=== PATIENT | female | born 1995 | race Caucasian/White ===

== ENCOUNTER 2017-01-28 11:15 | Emergency (ER) | payer OTHER ==
[~2017-01-28] VITALS: Ht 167.6 cm; Wt 84.8 kg
[~2017-01-28 11:15] MED LIST: CEFD300C3 PO
[2017-01-28] MEDS ORDERED: NS IV 1000 ML 1,000 ML IV ONE (11:37)
[2017-01-28] MEDS ORDERED: ONDANSETRON 4 MG/2 ML (SDV) Z0FRAN IVP ONE (11:45)
--- NOTE | 2017-01-28 11:53 | ED GI ---
General Chief Complaint: Abdominal/GI Problems Stated Complaint: VOMITING/DIARRHEA Nursing Triage Note: pt reports vomiting since midnight this am. pt also reports intermittent generalized abdominal pain. Sepsis Screen: No Definite Risk History of Present Illness Time Seen By Provider: 12:00 Initial Comments Patient presents for vomiting and diarrhea, symptoms began approximately 1230 a.m. She has had multiple episodes, diarrhea approximately 2 hours and dry heaves approximately 30 minutes prior to arrival. She also notes a moderate frontal headache, 4/.10. She ate dinner last night, nothing new or different for her, and had no symptoms when she went to bed. She is taking no medication for treatment of the n/v/d. No recent travel. She has not tried to eat or drink anything since the symptoms started. Se had gastric sleeve surgery approximately 4 years ago. Timing/Duration: 12 Hours Severity/Quality: Mild Location: Generalized Abdomen Radiation: No Radiation Activities at Onset: Sleeping Modifying Factors: Improves With Lying down, Improves With Resting Associated Symptoms: Headache Allergies and Home Medications Allergies Coded Allergies: Penicillins (Verified Allergy, Intermediate, RASH, 02/01/13) Home Medications Cefdinir 300 Mg Capsule 7Days 1 EACH PO BID Prescribed by: LUKE KING on 02/01/13 0223 Ciprofloxacin HCl 500 Mg Tablet #6 500 MG PO BID Prescribed by: ETELVINA ROYAL on 01/28/17 1510 Ondansetron 8 Mg Tab.rapdis #4 8 MG PO Q8H Prescribed by: ETELVINA ROYAL on 01/28/17 1510 Review of Systems Constitutional: no symptoms reported see HPI EENTM: No Symptoms Reported See HPI Respiratory: No Symptoms Reported See HPI Cardiovascular: No Symptoms Reported See HPI Gastrointestinal: See HPI Abdominal Pain (generalized) Diarrhea Nausea Vomiting Genitourinary: No Symptoms Reported See HPI Musculoskeletal: no symptoms reported see HPI Skin: no symptoms reported see HPI Psychiatric/Neurological: See HPI Headache Endocrine: No Symptoms Reported See HPI Hematologic/Lymphatic: No Symptoms Reported See HPI All Other Systems Reviewed Negative Unless Noted: Yes Past [id number]-Mpulzo Hx Patient Social History Alcohol Use: Rarely Uses Recreational Drug Use: No Smoking Status: Never a Smoker Recent Foreign Travel: No Contact w/Someone Who Travel: No Recent Infectious Disease Expo: No Recent Hopitalizations: No Surgeries HX Surgeries: Yes (NONINVASIVE BACK SURGEY, gastric sleeve) Respiratory Hx Respiratory Disorders: No Cardiovascular Hx Cardiac Disorders: No Neurological Hx Neurological Disorders: No Reproductive System Hx Reproductive Disorders: No Sexually Transmitted Disease: No HIV/AIDS: No Genitourinary Hx Genitourinary Disorders: No Gastrointestinal Hx Gastrointestinal Disorders: No Musculoskeletal Hx Musculoskeletal Disorders: No Endocrine Hx Endocrine Disorders: No HEENT HX ENT Disorders: No Cancer Hx Cancer: No Psychosocial Hx Psychiatric Problems: No Integumentary HX Skin/Integumentary Disorder: No Blood Transfusions Hx Blood Disorders: No Adverse Reaction to a Blood Tr: No Reviewed Nursing Assessment Reviewed/Agree w Nursing PMH: Yes Physical Exam Vital Signs VS - Last 72 Hours, by Label 01/28/17 01/28/17 11:41 15:22 Temp 98.3 Pulse 103 87 Resp 16 18 B/P 125/81 Pulse Ox 97 99 Capillary Refill : Less Than 3 Seconds General Appearance: WD/WN no apparent distress HEENT: PERRL/EOMI normal ENT inspection TMs normal pharynx normal other (oral mucosa pink and moist) Neck: non-tender full range of motion supple normal inspectionNo lymphadenopathy (R), No lymphadenopathy (L) Respiratory: chest non-tender lungs clear normal breath sounds Cardiovascular: normal peripheral pulses regular rate, rhythm no edema no JVD no murmur Gastrointestinal: normal bowel sounds non tender soft no organomegaly no pulsatile massNo distended, No guarding, No rebound, No tenderness, No hepatomegaly, No spleenomegaly, other (negative Stark) Extremities: normal range of motion non-tender normal inspection no pedal edema no calf tenderness normal capillary refill Back: normal inspection no CVA tenderness no vertebral tenderness Neurologic/Psychiatric: no motor/sensory deficits alert normal mood/affect oriented x 3 Skin: normal color warm/dryNo jaundice, No pallor Lymphatic: no adenopathy Progress/Results/Core Measures Results/Orders Lab Results Laboratory Tests Test 01/28/17 11:33 01/28/17 11:44 Range/Units Urine Amorphous Sediment FEW MARIS URATES H /LPF Urine Bacteria MODERATE H /HPF Urine Bilirubin 1+ H NEGATIVE Urine Casts NONE /LPF Urine Clarity SLIGHTLY CLOUDY Urine Color YELLOW Urine Crystals PRESENT H /LPF Urine Culture Indicated YES Urine Glucose (UA) NEGATIVE NEGATIVE Urine Ketones 3+ H NEGATIVE Urine Leukocyte Esterase 1+ H NEGATIVE Urine Mucus MODERATE H /LPF Urine Nitrite NEGATIVE NEGATIVE Urine Protein 2+ H NEGATIVE Urine RBC NONE /HPF Urine RBC (Auto) NEGATIVE NEGATIVE Urine Specific [place] 1.030 H 1.016-1.022 Urine Squamous Epithelial Cells 5-10 /HPF Urine Urobilinogen NORMAL NORMAL MG/DL Urine WBC 5-10 H /HPF Urine pH 5 5-9 Alanine Aminotransferase (ALT/SGPT) 10 0-55 U/L Albumin 4.4 3.2-4.5 G/DL Alkaline Phosphatase 55 40-136 U/L Anion Gap 10 5-14 MMOL/L Aspartate Amino Transf (AST/SGOT) 17 5-34 U/L BUN/Creatinine Ratio 21 Band Neutrophils 14 % Basophils # (Auto) 0.0 0.0-0.1 10^3/uL Basophils % (Manual) 0 % Basophils (%) (Auto) 0 0-10 % Blood Morphology Comment NORMAL Blood Urea Nitrogen 16 7-18 MG/DL Calcium Level 9.0 8.5-10.1 MG/DL Carbon Dioxide Level 24 21-32 MMOL/L Chloride Level 106 98-107 MMOL/L Creatinine 0.76 0.60-1.30 MG/DL Eosinophils # (Auto) 0.0 0.0-0.3 10^3/uL Eosinophils % (Manual) 0 % Eosinophils (%) (Auto) 0 0-10 % Estimat Glomerular Filtration Rate > 60 Glucose Level 103 70-105 MG/DL Hematocrit 39 35-52 % Hemoglobin 12.2 11.5-16.0 G/DL Lymphocytes # (Auto) 0.3 L 1.0-4.0 X 10^3 Lymphocytes % (Manual) 2 % Lymphocytes (%) (Auto) 4 L 12-44 % Mean Corpuscular Hemoglobin 28 25-34 PG Mean Corpuscular Hemoglobin Concent 32 32-36 G/DL Mean Corpuscular Volume 87 80-99 FL Mean Platelet Volume 10.3 7.4-10.4 FL Monocytes # (Auto) 0.3 0.0-1.0 X 10^3 Monocytes % (Manual) 2 % Monocytes (%) (Auto) 5 0-12 % Neutrophils # (Auto) 6.8 1.8-7.8 X 10^3 Neutrophils % (Manual) 82 % Neutrophils (%) (Auto) 92 H 42-75 % Platelet Count 165 130-400 10^3/uL Potassium Level 4.0 3.6-5.0 MMOL/L Red Blood Count 4.43 4.35-5.85 10^6/uL Red Cell Distribution Width 14.7 H 10.0-14.5 % Sodium Level 140 135-145 MMOL/L Total Bilirubin 1.2 H 0.1-1.0 MG/DL Total Protein 6.9 6.4-8.2 G/DL White Blood Count 7.4 4.3-11.0 10^3/uL My Orders Orders-GENNYETELVINA Ondansetron Injection (Zofran Injectio (01/28/17 11:45) Saline Lock/Iv-Start (01/28/17 11:37) Ns Iv 1000 Ml (Sodium Chloride 0.9%) (01/28/17 11:37) Urine Bedside (01/28/17 11:53) Ketorolac Injection (Toradol Injection) (01/28/17 12:11) Diphenhydramine Injection (Benadryl Inje (01/28/17 12:11) Promethazine Injection (Phenergan Injec (01/28/17 14:00) Medications Given in ED Current Medications Medications Dose Ordered Sig/Alison Route Start Time Stop Time Status Last Admin Dose Admin Ondansetron HCl 4 mg 4 mg ONCE ONCE IVP 01/28/17 11:45 01/28/17 11:46 DC 01/28/17 11:51 4 MG Promethazine HCl 25 mg ONCE ONCE IVP 01/28/17 14:00 01/28/17 14:01 DC 01/28/17 14:12 25 MG Sodium Chloride 1,000 ml @ 0 mls/hr Q0M ONCE IV 01/28/17 11:37 01/28/17 11:38 DC 01/28/17 11:51 1,000 MLS/HR Vital Signs/I&O Vital Sign - Last 12Hours 01/28/17 01/28/17 11:41 15:22 Temp 98.3 Pulse 103 87 Resp 16 18 B/P 125/81 Pulse Ox 97 99 Blood Pressure Mean: 96 Progress Note : Time: 12:00 Progress Note Initial evaluation completed, normal saline 1 L IV started. Zofran 8 mg IV. Patient complaining of mild frontal headache, will give Toradol 30 mg IV and Benadryl 25 mg IV. Labs have been sent will reevaluate when those are completed. 1220 UA pH 5, specific gravity 1.03, 2+ protein negative glucose, 3+ ketones, negative nitrites, 1+ bilirubin, 1+ leukocyte Estrace, negative RBCs, WBCs 5-10 , urine crystals present, urine bacteria moderate, culture indicated. WBC 7.4 hemoglobin 12.2, hematocrit 39, urine hCG negative. 1330 taking small sips of Sprite. IV fluids have infuse. She reports feeling slightly improved. 1355 after taking more Sprite she reports increased nausea again no vomiting or diarrhea. Will give Phenergan 25 mg IV. 1430 reports improvement in her nausea taking ice chips with no nausea. 1450 patient reports she is feeling much better, has taken Sprite and ice chips with no nausea vomiting or diarrhea. She has voided one time since admission. She feels she can manage at home. Abdominal exam she has trace tenderness in the epigastric region, now sounds positive 4 quadrants negative rebound negative Stark sign. No distention. She understands to return to the emergency department if symptoms return. I would like her to maintain a clear liquid diet for the next 4 hours then she can progress to a bland diet as tolerated, she verbalized understanding of this. Departure Impression Impression: Primary Impression: Nausea and vomiting Qualified Code: G43.A1 - Cyclical vomiting, intractable Additional Impression: Urinary tract infection Qualified Code: N30.00 - Acute cystitis without hematuria Disposition: HOME, SELF-CARE Condition: Improved Departure-Patient Inst. Referrals: [facility] (PCP) Primary Care Physician Patient Instructions: Dehydration, Adult (DC), Nausea and Vomiting, Adult (DC) , Urinary Tract Infection, Adult (DC) Add. Discharge Instructions: All discharge instructions reviewed with patient and/or family. Voiced understanding. Clear liquid diet for 4 hours then may progress to a bland diet. Start Cipro this evening for the urinary tract infection. Follow-up at [facility] tomorrow if symptoms return. Return to emergency Department if symptoms progress overnight or worsen significantly through the weekend. Scripts Ciprofloxacin HCl (Cipro)500 Mg [id number] Mg PO BID #6 TAB Ref 0 Prov:ETEVLINA ROYAL 01/28/17 Ondansetron (Zofran Odt)8 Mg Tab.rapdis8 Mg PO Q8H Nausea #4 TAB Ref 0 Prov:ETELVINA ROYAL 01/28/17 Work/School Note: School/Childcare Release Date Seen in the Emergency Department: Jan 28, 2017 Return to School: Jan 29, 2017 Restrictions: No Restrictions Copy Copies To 1: TAYLOR HERNANDEZ MD, AMY ARNP Jan 28, 2017 11:53
[2017-01-28 12:06] LABS: BASOPHILS % (AUTO) 0 % (0-10); EOSINOPHILS % (AUTO) 0 % (0-10); LYMPHOCYTES # (AUTO) 0.3 X 10^3 (1.0-4.0); LYMPHOCYTES % (AUTO) 4 % (12-44); MEAN CORPUSCULAR HEMOGLOBIN 28 PG (25-34); MEAN CORPUSCULAR HGB CONC 32 G/DL (32-36); MEAN CORPUSCULAR VOLUME 87 FL (80-99); MEAN PLATELET VOLUME 10.3 FL (7.4-10.4); MONOCYTES # (AUTO) 0.3 X 10^3 (0.0-1.0); MONOCYTES % (AUTO) 5 % (0-12); NEUTROPHILS # (AUTO) 6.8 X 10^3 (1.8-7.8); NEUTROPHILS % (AUTO) 92 % (42-75); PLATELET COUNT 165 10^3/uL (130-400); RED BLOOD COUNT 4.43 10^6/uL (4.35-5.85); RED CELL DISTRIBUTION WIDTH 14.7 % (10.0-14.5); WHITE BLOOD COUNT 7.4 10^3/uL (4.3-11.0)
[2017-01-28 12:07] LABS: KETONES,URINE 3+ (NEGATIVE); LEUKOCYTE ESTERASE ,URINE 1+ (NEGATIVE); NITRITE,URINE NEGATIVE (NEGATIVE); PH,URINE 5 (5-9); PROTEIN,URINE 2+ (NEGATIVE); UROBILINOGEN,URINE NORMAL (NORMAL)
[2017-01-28] MEDS ORDERED: KETOROLAC 30 MG/ML VIAL IVP STA (12:11)
[2017-01-28] MEDS ORDERED: diphenhydrAMINE 50 MG/ML INJ (BENADRYL) IV STA (12:11)
[2017-01-28 12:17] LABS: BILIRUBIN,URINE 1+ (NEGATIVE)
[2017-01-28 12:23] LABS: ALANINE AMINOTRANSFERASE 10 U/L (0-55); ALBUMIN 4.4 G/DL (3.2-4.5); ANION GAP 10 MMOL/L (5-14); ASPARTATE AMINO TRANSFERASE 17 U/L (5-34); BILIRUBIN,TOTAL 1.2 MG/DL (0.1-1.0); BLOOD UREA NITROGEN 16 MG/DL (7-18); BUN/CREATININE RATIO 21; CARBON DIOXIDE 24 MMOL/L (21-32); CHLORIDE 106 MMOL/L (98-107); CREATININE SERUM 0.76 MG/DL (0.60-1.30); GFR ESTIMATED > 60; GLUCOSE 103 MG/DL (70-105); SODIUM 140 MMOL/L (135-145); TOTAL PROTEIN 6.9 G/DL (6.4-8.2)
[2017-01-28 12:46] LABS: BAND NEUTROPHILS 14 %; BASOPHILS % (MANUAL) 0 %; EOSINOPHILS % (MANUAL) 0 %; LYMPHOCYTES % (MANUAL) 2 %; NEUTROPHILS % (MANUAL) 82 %
[2017-01-28] MEDS ORDERED: PROMETHAZINE INJ 25 MG/ML (PHENERGAN) AMP IVP ONE (14:00)
[2017-01-28] MEDS ORDERED: CIPR-225 PO (15:10)
[2017-01-28] MEDS ORDERED: ONDA8TAB9 PO (15:10)
[2017-01-28 15:22] VITALS: BP 123/77
== END 2017-01-28 15:22 | disposition home or self-care (01) ==
LOC: EDUNIT# 11:15 → ER 11:17
DX: R11.2 Nausea with vomiting, unspecified (principal); N39.0 Urinary tract infection, site not specified; Z98.84 Bariatric surgery status
CPT/HCPCS: 36415; 80053; 81000; 84703; 85007; 85027; 87088; 96361; 96374; 96375